=== PATIENT | female | born 1980 | race African-American/Black ===

== ENCOUNTER → 2019-08-11 | Outpatient (CLI) | payer OTHER | END | disposition home or self-care (01) | LOC: LABPV 10:25 | PROVIDERS: ATTEND Internal Medicine | DX: Z02.1 Encounter for pre-employment examination (principal) | CPT/HCPCS: 86706; 86735; 86762; 86765; 86787 ==

== ENCOUNTER 2024-09-21 11:12 | Emergency (ER) | payer MEDICAID ==
[~2024-09-21] VITALS: Ht 170.2 cm; Wt 86.4 kg
[2024-09-21 11:32] VITALS: TEMP 98.7
[2024-09-21 12:42] LABS: BASOPHILS % (AUTO) 0.2 % (0.0-2.0); LYMPHOCYTES # (AUTO) 0.5 K/uL (1.0-4.8); MONOCYTES # (AUTO) 0.1 K/uL (0.1-1.0); MONOCYTES % (AUTO) 1.2 % (2.0-9.0)
[2024-09-21 12:47] LABS: EOSINOPHILS % (AUTO) 0.1 % (1.0-6.0); HEMATOCRIT 41.4 % (36-46); HEMOGLOBIN 14.5 g/dL (12.0-16.0); MEAN CORPUSCULAR HEMOGLOBIN 35.9 pg (26.0-34.0); MEAN CORPUSCULAR HGB CONC 35.1 G/dL (31.0-37.0); MEAN CORPUSCULAR VOLUME 102 fL (80-100); NEUTROPHILS # (AUTO) 5.4 K/uL (1.8-7.7); RED BLOOD CELL COUNT(AUTO) 4.04 MIL/uL (4.00-5.20); RED CELL DISTRIBUTION WIDTH 17.1 % (11.5-14.5)
[2024-09-21 12:49] LABS: NEUTROPHILS % (AUTO) 89.5 % (40.0-70.0)
[2024-09-21 13:05] LABS: TROPONIN I-HIGH SENSITIVITY 49 ng/L (<51)
[2024-09-21 13:39] LABS: PLATELET COUNT (AUTO) 112 K/uL (150-450); RBC MORPHOLOGY COMMENT ABNORMAL RBC MORPH
[2024-09-21 15:26] LABS: COVID AG,FIA SOURCE NASAL SWAB
[2024-09-21 15:49] LABS: SARS-COV2 (COVID) ANTIGEN,FIA Negative (Negative)
[2024-09-21 15:50] LABS: INFLUENZA TYPE A NEGATIVE FOR TYPE A (NEGATIVE); INFLUENZA TYPE B NEGATIVE FOR TYPE B (NEGATIVE)
[2024-09-21 16:07] LABS: ANION GAP 12 mmol/L (8-16); CALCIUM, TOTAL 8.8 mg/dL (8.8-10.5); CARBON DIOXIDE 22 mmol/L (22-29); CHLORIDE 100 mmol/L (98-107); CREATININE 1.01 mg/dL (0.60-1.30); GLOMERULAR FILTR. RATE CALC > 60 mL/min (>60); GLUCOSE,RANDOM 94 mg/dL (70-110); POTASSIUM 3.1 mmol/L (3.5-5.1); SODIUM SERUM 134 mmol/L (136-145); UREA NITROGEN, BLOOD 9 mg/dL (7-18)
[2024-09-21 16:13] LABS: ALANINE AMINOTRANSFERASE 70 U/L (12-78); ALBUMIN 3.5 g/dL (3.4-5.0); ALKALINE PHOSPHATASE 153 U/L (46-116); ASPARTATE AMINOTRANSFERASE 165 U/L (15-37); BILIRUBIN,TOTAL 0.7 mg/dL (0.1-1.0); TOTAL PROTEIN, SERUM 8.3 g/dL (6.4-8.2)
[2024-09-21] MEDS: CloNIDine HCL 0.2 MG TABLET PO ONE (16:24)
[2024-09-21] MEDS: KETOROLAC TROMETHAMINE 30 MG/ML VIAL IVP ONE (17:21)
[2024-09-21] MEDS: POTASSIUM CHLORIDE 20 MEQ ER TABLET PO ONE (17:21)
[2024-09-21] MEDS ORDERED: CLON-441 PO (18:20)
[2024-09-21] MEDS ORDERED: AMLO-257 PO (18:20)
[2024-09-21] MEDS ORDERED: POTA-364 PO (18:20)
[2024-09-21 18:54] VITALS: BP 146/99; PULSE 90; RESP 16; O2SAT 98
== END 2024-09-21 19:11 | disposition home or self-care (01) ==
LOC: EMS 11:12
DX: E87.6 Hypokalemia (principal); I10 Essential (primary) hypertension; R07.9 Chest pain, unspecified; R53.1 Weakness; Z90.710 Acquired absence of both cervix and uterus; Z79.899 Other long term (current) drug therapy; Z20.822 Contact with and (suspected) exposure to COVID-19
CPT/HCPCS: 71045; 80053; 83880; 84484; 84703; 85025; 87804; 93005; 96374; 99285; J1885; 36415-L1; 36415-TC